=== PATIENT | male | born 1980 | race Caucasian/White ===

== ENCOUNTER 2021-03-18 03:54 | Emergency (ER) | payer OTHER ==
[2021-03-18 04:05] VITALS: BP 123/76; PULSE 62; TEMP 97.9; BMI 25.1
[2021-03-18] MEDS ORDERED: SODIUM CHLORIDE 1,000 ML IV STA (04:21)
[2021-03-18] MEDS ORDERED: KETOROLAC TROMETHAMINE 30 MG/1 ML VIAL IVPUSH ONE (04:21)
[2021-03-18] MEDS ORDERED: KETOROLAC TROMETHAMINE 30 MG/1 ML VIAL ONE (04:45)
[2021-03-18 05:11] LABS: BASO % 0.7 % (0-2.0); EOS % 6.2 % (0-4.5); HEMOGLOBIN 15.1 GM/dL (11.7-16.9); LYMPH % 33.8 % (8-40); MCH 29.4 pg (25.7-33.7); MEAN PLT VOLUME 7.5 fl (7.5-11.1); MONO % 7.6 % (3.8-10.2); NEUT % 51.7 % (42.8-82.8); PLATELET COUNT 252 K/MM3 (134-434); RBC 5.12 M/mm3 (4.00-5.60); RDW 12.8 % (11.9-15.9); WHITE BLOOD COUNT 9.8 K/mm3 (4.0-10.0)
[2021-03-18 05:12] LABS: PH,URINE 5.5 (5.0-8.0); URINE APPEARANCE CLEAR; URINE BILIRUBIN NEGATIVE (NEGATIVE); URINE COLOR YELLOW; URINE GLUCOSE (UA) NEGATIVE (NEGATIVE); URINE KETONE NEGATIVE (NEGATIVE); URINE LEUK ESTERASE NEGATIVE (NEGATIVE); URINE NITRITE NEGATIVE (NEGATIVE); URINE PROTEIN NEGATIVE (NEGATIVE); URINE UROBILINOGEN 0.2 mg/dL (0.2-1.0)
[2021-03-18 05:32] LABS: CALCIUM 8.9 mg/dL (8.5-10.1)
[2021-03-18 05:33] LABS: BLOOD UREA NITROGEN 15.8 mg/dL (7-18)
[2021-03-18 05:36] LABS: CREATININE 1.1 mg/dL (0.55-1.3)
[2021-03-18 05:37] LABS: BILIRUBIN,TOTAL 0.4 mg/dL (0.2-1)
[2021-03-18 05:39] LABS: TOT PROT 7.7 g/dl (6.4-8.2)
[2021-03-18] MEDS ORDERED: ACETAMINOPHEN 1000 MG/100 ML VIAL (NON FORMULARY) IVPB ONE (08:21)
[2021-03-18] MEDS ORDERED: ACETAMINOPHEN INJECTION 100 ML IVPB ONE (08:35)
[2021-03-18] MEDS ORDERED: metroNIDAZOLE 250 MG TABLET PO ONE (08:44)
[2021-03-18] MEDS ORDERED: levoFLOXacin 750 MG TABLET PO ONE (08:44)
[2021-03-18] MEDS ORDERED: metroNIDAZOLE 250 MG TABLET ONE (08:56)
== END 2021-03-18 09:25 | disposition home or self-care (01) ==
LOC: FER 03:54
PROC: 3E0333Z Introduction of Anti-inflammatory into Peripheral Vein, Percutaneous Approach (ICD-10-PCS; principal; 2021-03-18)
PROC: 3E033GC Introduction of Other Therapeutic Substance into Peripheral Vein, Percutaneous Approach (ICD-10-PCS; 2021-03-18)
PROC: 3E0337Z Introduction of Electrolytic and Water Balance Substance into Peripheral Vein, Percutaneous Approach (ICD-10-PCS; 2021-03-18)
DX: N28.1 Cyst of kidney, acquired (principal); N28.9 Disorder of kidney and ureter, unspecified; K38.8 Other specified diseases of appendix
CPT/HCPCS: 36415; 74177-TC; 80053; 81003; 85025; 93005; 99285-25; J0131; Q9967